=== PATIENT | male | born 1945 | race Caucasian/White ===

== ENCOUNTER 2017-04-13 16:58 | Emergency (ER) | payer OTHER, MEDICAID ==
[~2017-04-13] VITALS: Ht 162.6 cm; Wt 62.5 kg
[~2017-04-13 16:58] MED LIST: ALBU8.5H3 INH; BECL8.7A5 INH; PRED20TA PO
[2017-04-13 17:08] VITALS: Ht 162.6 cm; Wt 62.5 kg
[2017-04-13] MEDS ORDERED: ALBUTEROL 0.083% (NEB) 2.5 MG/3 ML AMP HHN STA (19:03)
[2017-04-13] MEDS ORDERED: DEXAMETHASONE 10 MG/ML 1 ML INJ PO ONE (19:30)
[2017-04-13] MEDS ORDERED: IPRATROPIUM (NEB) 0.5 MG/2.5 ML AMP HHN ONE (19:30)
[2017-04-13 19:41] LABS: BASOPHILS % 0.3 % (0.0-2.0); HEMATOCRIT 46.1 % (42.0-52.0); HEMOGLOBIN 15.9 g/dl (14.0-18.0); LYMPHOCYTES # 1.5 10^3/ul (0.8-2.9); LYMPHOCYTES % 12.1 % (15.0-51.0); MEAN CORPUSCULAR HEMOGLOBIN 29.6 pg (29.0-33.0); MEAN CORPUSCULAR HGB CONC 34.5 g/dl (32.0-37.0); MEAN CORPUSCULAR VOLUME 85.7 fl (82.0-101.0); MONOCYTE # 0.8 10^3/ul (0.3-0.9); MONOCYTES % 6.4 % (0.0-11.0); NEUTROPHIL # 8.7 10^3/ul (1.6-7.5); NEUTROPHILS % 72.9 % (39.0-77.0); PLATELET COUNT 222 10^3/UL (140-415); RED BLOOD COUNT 5.38 10^6/ul (4.70-6.10); RED CELL DISTRIBUTION WIDTH 13.2 % (11.5-14.5); WHITE BLOOD COUNT 11.9 10^3/ul (4.8-10.8)
[2017-04-13 19:54] LABS: ALANINE AMINOTRANSFERASE 38 IU/L (13-69); ALBUMIN 4.3 g/dl (3.3-4.9); ALBUMIN/GLOBULIN RATIO 1.34; ALKALINE PHOSPHATASE 101 IU/L (42-121); ANION GAP 14 (8-16); ASPARTATE AMINO TRANSFERASE 26 IU/L (15-46); BILIRUBIN,INDIRECT 0.3 mg/dl (0-1.1); BILIRUBIN,TOTAL 0.3 mg/dl (0.2-1.3); BLOOD UREA NITROGEN 19 mg/dl (7-20); CALCIUM 8.7 mg/dl (8.4-10.2); CARBON DIOXIDE 23 mmol/L (21-31); CHLORIDE 109 mmol/L (97-110); CREATININE 0.79 mg/dl (0.61-1.24); GLUCOSE 103 mg/dl (70-220); POTASSIUM 4.1 mmol/L (3.5-5.1); SODIUM 142 mmol/L (135-144); TOTAL PROTEIN 7.5 g/dl (6.1-8.1)
[2017-04-13 20:12] LABS: TROPONIN-I < 0.012 ng/ml (0.00-0.12)
--- NOTE | 2017-04-13 21:18 | RADRPT ---
PROCEDURE: XR Chest. CLINICAL INDICATION: Cough. TECHNIQUE: Single frontal view of the chest COMPARISON: 09/26/2015 FINDINGS: The cardiomediastinal silhouette is within normal limits. The lungs are clear. No signs of pleural f luid or pneumothorax are seen. The osseous structures and soft tissues are unremarkable. IMPRESSION: No evidence for active cardiopulmonary disease. RPTAT: UU Physician Omar Date Time Electronically viewed and signed by Bryan Early Physician on 04/13/2017 21:18 RS/
[2017-04-13] MEDS ORDERED: AZIT250T94 PO (21:31)
[2017-04-13] MEDS ORDERED: UDROBDM PO (21:32)
--- NOTE | 2017-04-13 21:39 | ERD ---
ER Documentation Chief Complaint Chief Complaint cough & congestion x4 days, sent by clinic HPI This is a 71-year-old male that presents to the ER with a cough for the last 4 days. Patient has a past medical history of asthma and over the last day has had increased wheezing. Patient states that whenever he coughs he feels chest pain. Chest pain has been going on since his cough started. He denies any exertional chest pain shortness of breath. Patient states that he had a fever at home yesterday. ROS 12 point review of systems was done, all negative except per HPI. Medications Home Meds Active Scripts Guaifenesin-Dextromethorphan* (Robitussin* DM) 100MG/10MG/5ML Syrup, 10 ML PO Q4H Y for COUGH for 3 Days, ML Prov:ARIEL MONROE 04/13/17 Azithromycin* (Zithromax*) 250 Mg Tablet, 250 MG PO .ZPACK DIRECTED, #6 TAB TAKE 500 MG (2 TABS) THE FIRST DAY THEN 250 MG (1 TAB) DAYS 2-5 Prov:ARIEL MONROE 04/13/17 Prednisone* (Prednisone*) 20 Mg Tab, 40 MG PO DAILY for 7 Days, TAB 40 MGX DAYS THEN 20 MGX3 DAYS THEN 10MGX3 DAYS THEN STOP Prov:LORA SHERMAN NP 01/03/16 Albuterol Sulfate* (Proair HFA*) 8.5 Gm Hfa.aer.ad, 2 PUFF INH Q4, #1 INHALER Prov:DEO THOMAS PA-C 09/28/15 Reported Medications Beclomethasone Dip* (Qvar 80*) 7.3 Gm Inha, 2 PUFF INH BID, #1 INHALER 01/02/16 Allergies Allergies: Coded Allergies: Penicillins (Verified Allergy, Unknown, 04/13/17) ampicillin (Verified Allergy, Unknown, 04/13/17) sulfamethoxazole (Verified Allergy, Unknown, 04/13/17) trimethoprim (Verified Allergy, Unknown, 04/13/17) PMhx/Soc History of Surgery: Yes (thyroid cyst removal,abd sx) Anesthesia Reaction: No Hx Neurological Disorder: No Hx Respiratory Disorders: Yes Hx Cardiac Disorders: No Hx Psychiatric Problems: No Hx Miscellaneous Medical Probl: Yes (asthma,thyroid abnormality) Hx Alcohol Use: No Hx Substance Use: No Hx Tobacco Use: No Smoking Status: Never smoker Physical Exam Vitals Vital Signs Date Time Temp Pulse Resp B/P Pulse Ox O2 Delivery O2 Flow Rate FiO2 04/13/17 19:45 84 28 98 21 04/13/17 17:08 99.2 100 18 125/84 97 Physical Exam GENERAL: The patient is well-developed, well-nourished, in no acute distress. NECK: Cervical spine is non tender with no step off. Supple, no nuchal rigidity HEENT: Atraumatic. Pupils equal, round and reactive to light. Extraocular muscles are grossly intact. Conjunctivae pink, no discharge. Bilateral tympanic membranes are clear with no evidence of erythema, effusion or dulling of the light reflex. Tonsilar erythema with no exudates or uvular deviation. Clear rhinorrhea. RESPIRATORY: Expiratory wheezes in all lung [place], coarse breath sounds. No rales rhonchi or crackles. HEART: Regular rate and rhythm. No murmurs, clicks, rubs or gallops. NEUROLOGIC: Alert and oriented. SKIN: There is no rash. The skin is warm and dry. Result Diagram: 04/13/17192404/13/171924 Results 24 hrs Laboratory Tests Test 04/13/17 19:25 White Blood Count 11.910^3/ul Red Blood Count 5.3810^6/ul Hemoglobin 15.9g/dl Hematocrit 46.1% Mean Corpuscular Volume 85.7fl Mean Corpuscular Hemoglobin 29.6pg Mean Corpuscular Hemoglobin Concent 34.5g/dl Red Cell Distribution Width 13.2% Platelet Count 42649^3/UL Mean Platelet Volume 9.0fl Neutrophils % 72.9% Lymphocytes % 12.1% Monocytes % 6.4% Eosinophils % 8.0% Basophils % 0.3% Nucleated Red Blood Cells % 0.0/100WBC Neutrophils # 8.710^3/ul Lymphocytes # 1.510^3/ul Monocytes # 0.810^3/ul Eosinophils # 1.010^3/ul Basophils # 0.010^3/ul Nucleated Red Blood Cells # 0.010^3/ul Sodium Level 142mmol/L Potassium Level 4.1mmol/L Chloride Level 109mmol/L Carbon Dioxide Level 23mmol/L Anion Gap 14 Blood Urea Nitrogen 19mg/dl Creatinine 0.79mg/dl Glucose Level 103mg/dl Calcium Level 8.7mg/dl Total Bilirubin 0.3mg/dl Direct Bilirubin 0.00mg/dl Indirect Bilirubin 0.3mg/dl Aspartate Amino Transf (AST/SGOT) 26IU/L Alanine Aminotransferase (ALT/SGPT) 38IU/L Alkaline Phosphatase 101IU/L Troponin I < 0.012ng/ml Total Protein 7.5g/dl Albumin 4.3g/dl Globulin 3.20g/dl Albumin/Globulin Ratio 1.34 Current Medications Medications (Trade) Dose Ordered Sig/Birdie Route PRN Reason Start Time Stop Time Status Last Admin Dose Admin Albuterol (Proventil 0.083% (Neb)) 5 mg ONCE STAT N 04/13/17 19:03 04/13/17 19:06 DC 04/13/17 19:44 Ipratropium [place] (Atrovent 0.02% (Neb)) 0.5 mg ONCE ONCE HHN 04/13/17 19:30 04/13/17 19:33 DC 04/13/17 19:44 Dexamethasone (Decadron) 8 mg ONCE ONCE PO 04/13/17 19:30 04/13/17 19:33 DC 04/13/17 19:29 [place] [id number] Radiology Main Line: [phone] DIAGNOSTIC IMAGING REPORT Patient: JUAN KAMINSKI : 1945 Age: 71 Sex: M MR #: [id number] DOS: 04/13/17 0000 Ordering MD: ARIEL MONROE PA-C Location: [facility] Room/Bed: PROCEDURE: XR Chest. CLINICAL INDICATION: Cough. TECHNIQUE: Single frontal view of the chest COMPARISON: 09/26/2015 FINDINGS: The cardiomediastinal silhouette is within normal limits. The lungs are clear. No signs of pleural fluid or pneumothorax are seen. The osseous structures and soft tissues are unremarkable. IMPRESSION: No evidence for active cardiopulmonary disease. RPTAT: UU R Stecher, Physician Date Time Electronically viewed and signed by Bryan Early Physician on 04/13/2017 21:18 RS/ CC: ARIEL MONROE [facility] EKG read by Dr. Lan 79bpm no ST elevation no T-wave inversion. Differential diagnosis includes but is not limited to; Viral URI, allergic rhinitis, bronchitis, pertussis,pneumonia. Patient has had a worsening cough over the last 4 days with a fever yesterday and worsening wheezing today. Will be treated as a bacterial bronchitis with wheezing. Patient was given a nebulizing treatment in the ER, and upon reexamination his wheezing had improved and he stated he felt significantly better. Patient for acute cardiac etiology is low, patient only has chest pain with coughing and his EKG was normal. Troponin was negative. Patient's heart score is 2, which is low. Clinical suspicion for pneumonia is low as patient appears well, is not hypoxic or in any respiratory distress. Additionally, patients physical examination improved after treatment. Plan was discussed with patient they understand and agree. Patient needs to follow up with PCP in 1-2 days or return to ER sooner if symptoms worsen. Departure Diagnosis: Primary Impression: Bronchitis Condition: Stable Patient Instructions: Bronchitis With Wheezing (Adult) Additional Instructions: Llame al doctor KIMBERLY y evon rose JOVANNY PARA DENTRO DE 1-2 BONNER.Dgale a la secretaria que nosotros le instruimos hacer esta jovanny.Avise o llame si dodson condicin se empeora antes de la jovanny. Regresa aqui si peor o no mejor. ARIEL MONROE Apr 13, 2017 21:39
[2017-04-13 21:42] VITALS: BP 121/71; PULSE 98; RESP 18
== END 2017-04-13 21:43 | disposition home or self-care (01) ==
LOC: FTE 16:58
DX: J20.9 Acute bronchitis, unspecified (principal); J45.909 Unspecified asthma, uncomplicated; R07.9 Chest pain, unspecified
CPT/HCPCS: 71010; 80053; 84484; 85025; 93005; 94664; 99285; J1100

== ENCOUNTER 2017-06-15 17:37 | Emergency (ER) | payer OTHER ==
[~2017-06-15] VITALS: Ht 165.1 cm; Wt 63.7 kg
[~2017-06-15 17:37] MED LIST changes: +AZIT250T94 PO; +UDROBDM PO
[2017-06-15 17:43] VITALS: Ht 165.1 cm; Wt 63.7 kg
--- NOTE | 2017-06-15 20:12 | ERD ---
ER Documentation Chief Complaint Chief Complaint WOKE UP WITH RT LEG PAIN TODAY , NO TRAUMA HPI 71-year-old male, previously healthy, presents to the emergency department complaining of the sudden onset of right knee pain today after using the stairs. The pain is sharp, localized on the lateral side of the knee, constant, 6/10. No treatment attempted at this time. The patient denies any direct trauma. No fever, chills, no skin changes. ROS A 12-point review of systems was performed and negative other than presented in the history of present illness. SYSTEMIC symptoms: no fever, chills, no night sweats, no weight loss EYE symptoms: No blurred vision, no eye discharge OTOLARYNGEAL symptoms: No hearing loss. No ear pain, no sore throat CARDIOVASCULAR symptoms: No chest pain or discomfort, no palpitations. PULMONARY symptoms: No dyspnea, no cough, no wheezing. GASTROINTESTINAL symptoms: No abdominal pain, no nausea, no vomiting, no diarrhea MUSCULOSKELETAL symptoms: Per HPI NEUROLOGY symptoms: No confusion, no syncope, no numbness or tingling. SKIN: No rashes Medications Home Meds Active Scripts Hydrocodone/Acetaminophen ([place] 5-325 Tablet) 1 Each Tablet, 1 TAB PO Q6H Y for PAIN, #12 TAB Prov:DIANN TANG MD 06/15/17 Ibuprofen* (Ibuprofen*) 600 Mg Tablet, 600 MG PO Q8 Y for PAIN AND/OR INFLAMMATION, #20 TAB Prov:DIANN TANG MD 06/15/17 Guaifenesin-Dextromethorphan* (Robitussin* DM) 100MG/10MG/5ML Syrup, 10 ML PO Q4H Y for COUGH for 3 Days, ML Prov:ARIEL MONROE 04/13/17 Azithromycin* (Zithromax*) 250 Mg Tablet, 250 MG PO .KevPACK DIRECTED, #6 TAB TAKE 500 MG (2 TABS) THE FIRST DAY THEN 250 MG (1 TAB) DAYS 2-5 Prov:ARIEL MONROE 04/13/17 Prednisone* (Prednisone*) 20 Mg Tab, 40 MG PO DAILY for 7 Days, TAB 40 MGX DAYS THEN 20 MGX3 DAYS THEN 10MGX3 DAYS THEN STOP Prov:LORA SHERMAN NP 01/03/16 Albuterol Sulfate* (Proair HFA*) 8.5 Gm Hfa.aer.ad, 2 PUFF INH Q4, #1 INHALER Prov:DEO THOMAS PA-C 09/28/15 Reported Medications Beclomethasone Dip* (Qvar 80*) 7.3 Gm Inha, 2 PUFF INH BID, #1 INHALER 01/02/16 Allergies Allergies: Coded Allergies: Penicillins (Verified Allergy, Unknown, 04/13/17) ampicillin (Verified Allergy, Unknown, 04/13/17) sulfamethoxazole (Verified Allergy, Unknown, 04/13/17) trimethoprim (Verified Allergy, Unknown, 04/13/17) PMhx/Soc History of Surgery: Yes (thyroid cyst removal,abd sx) Anesthesia Reaction: No Hx Neurological Disorder: No Hx Respiratory Disorders: Yes Hx Cardiac Disorders: No Hx Psychiatric Problems: No Hx Miscellaneous Medical Probl: Yes (asthma,thyroid abnormality) Hx Alcohol Use: No Hx Substance Use: No Hx Tobacco Use: No Smoking Status: Never smoker Physical Exam Vitals Vital Signs Date Time Temp Pulse Resp B/P Pulse Ox O2 Delivery O2 Flow Rate FiO2 06/15/17 17:43 97.3 84 18 127/74 97 Physical Exam Patient is in no acute distress, vital signs stable. Alert and fully oriented. EYES: PERRLA, EOMI, Sclera and conjunctiva appear normal. EARS: Canals clear, tympanic membranes WNL THROAT: Normal oropharynx. NECK: Supple, No lymphadenopathy. Full ROM without pain or tenderness. HEART: RRR, no rubs, murmurs, clicks or gallops. LUNGS: Clear to auscultation. ABDOMEN: Soft, non-tender without masses or hepatosplenomegaly. EXTREMITIES: No edema bilaterally. Right knee: Normal inspection, full range of motion, moderate tenderness to palpation of the lateral aspect. Mild crepitus. No meniscus or ligament signs BACK: Full ROM, no deformity, normal back exam NEURO: Cranial nerves grossly intact, no motor or sensory deficit Results [address] [address] Radiology Main Line: [phone] DIAGNOSTIC IMAGING REPORT Patient: JUAN KAMINSKI : 1945 Age: 71 Sex: M MR #: [id number] DOS: 06/15/172009 Ordering MD: DIANN TANG MD Location: [facility] Room/Bed: PROCEDURE: Right knee radiographs. CLINICAL INDICATION: Acute right knee pain. TECHNIQUE: Three views. Frontal, lateral, and oblique. COMPARISON: No prior studies are available for comparison. FINDINGS: There is no fracture or dislocation. The soft tissues are normal. The articular surfaces are intact. There is no lytic or blastic lesion. There is no radiopaque foreign body. IMPRESSION: 1. Unremarkable images of the right knee. RPTAT: QQ .Will Dennison MD, MD Date Time Electronically viewed and signed by .Will Dennison MD, MD on 06/15/2017 21:07 .R/ CC: DIANN TANG MD Procedures/MDM 71-year-old male, previously healthy, presents complaining of sudden onset of right knee pain. Vital signs stable, Physical exam unremarkable, no evidence of meniscus or ligament injury. Differential diagnosis include but not limited to: Sprain, strain, fracture, osteoarthritis, meniscus injury, ligament injury. Low suspicion for septic arthritis. Radiology: Right knee x-rays: Normal Physical examination and clinical presentation consistent most likely with right knee sprain. During the ED course the patient remained stable, no new complaints. Results and clinical impression discussed with patient who agrees with management. The patient is stable to be treated outpatient and will be discharged home with a Rx for ibuprofen and [place], some side effects of prescribed medications (headache, rash, nausea, vomiting, diarrhea, drowsiness, habituation, bleeding, hypertension, interactions with other medications) were reviewed. The patient was instructed to follow up with the primary care provider in the next 48h. If symptoms persist, worsen or new symptoms develop, then patient should return to the ED immediately. Instructions explained and given directly by me to the patient in Irish with acknowledgment and demonstrated understanding. Disclaimer: Inadvertent spelling and grammatical errors are likely due to EHR/ dictation software use and do not reflect on the overall quality of patient care. Also, please note that the electronic time recorded on this note does not necessarily reflect the actual time of the patient encounter. Departure Diagnosis: Primary Impression: Right knee sprain Condition: Stable Additional Instructions: Muchas harinder por [facility] para dodson servicio. Esperamos que en dodson visita a la quita de emergencia dodson problema medico haya sido solucionado y que se sienta mucho mejor. Para estar seguros que dodson mejoria sigue en proceso, le pedimos el favor de hacer rose beth de seguimiento medico con dodson doctor primario en los proximos 2-4 burris. Lleve con usted estos documentos y las medicinas recetadas. Si faiza sintomas empeoran y no puede cora a dodson doctor, por favor regrese a quita de emergencia. En anel que usted no tenga un mdico de atencin primaria: Llame al mdico o clnica comunitaria de referencia que aparece abajo nancie las horas de consultorio para hacer rose beth para que le vean. CLINICAS: [facility] [phone] [facility] [phone] [facility] [phone] [facility] [phone] [place] [id number] [phone] [facility]. [phone] DIANN FLAHERTY MD Jun 15, 2017 20:12
--- NOTE | 2017-06-15 21:07 | RADRPT ---
PROCEDURE: Right knee radiographs. CLINICAL INDICATION: Acute right knee pain. TECHNIQUE: Three views. Frontal, lateral, and oblique. COMPARISON: No prior studies are available for comparison. FINDINGS: There is no fracture or dislocation. The soft tissues are normal. The articular surfaces are intact. There is no lytic or blastic lesion. There is no radiopaque foreign body. IMPRESSION: 1. Unremarkable images of the right knee. RPTAT: QQ .Will Dennison MD, MD Date Time Electronically viewed and signed by .Will Dennison MD, on 06/15/2017 21:07 .R/
[2017-06-15] MEDS ORDERED: IBUP-1542 PO (21:43)
[2017-06-15] MEDS ORDERED: HYDR-906 PO (21:43)
== END 2017-06-15 22:24 | disposition left against medical advice (07) ==
LOC: FTE 17:37
DX: S83.91XA Sprain of unspecified site of right knee, initial encounter (principal); J45.909 Unspecified asthma, uncomplicated; X58.XXXA Exposure to other specified factors, initial encounter; Y92.9 Unspecified place or not applicable
CPT/HCPCS: 73562

== ENCOUNTER 2017-08-05 22:40 | Emergency (ER) | END 2017-08-06 02:04 | disposition home or self-care (01) ==

== ENCOUNTER 2018-07-07 19:29 | Emergency (ER) | payer OTHER ==
[~2018-07-07] VITALS: Ht 162.6 cm; Wt 66.0 kg
[~2018-07-07 19:29] MED LIST changes: -ALBU8.5H3 INH; +ALBU8.5H8 INH; +AZIT250T PO; -AZIT250T94 PO; +GUAI5SYR2 PO; +HYDR-4011 PO; +IBUP-1542 PO; -UDROBDM PO
[2018-07-07 19:36] VITALS: Ht 162.6 cm; Wt 66.0 kg
[2018-07-07] MEDS ORDERED: SOD CHLORIDE 0.9% 500 ML IV STA (23:58)
[2018-07-07] MEDS ORDERED: ONDANSETRON 4 MG INJ IV STA (23:58)
[2018-07-07] MEDS ORDERED: morphine 4 MG/ML VIAL IV STA (23:58)
[2018-07-08 01:58] VITALS: RESP 22
[2018-07-08] MEDS ORDERED: NAPR-985 PO (02:15)
--- NOTE | 2018-07-08 02:16 | ERD ---
ER Documentation Chief Complaint Chief Complaint left abdominal pain x 1 day HPI This 72-year-old complains of left lower quadrant abdominal pain for the past day. Pain mild to moderate intensity. Mild nausea but no vomiting. Pain is colicky in nature with no exacerbating relieving factors or radiations. Denies dysuria. Denies any change in bowel or bladder habits. Denies any change in prandial habits. ROS All systems reviewed and are negative except as per history of present illness. Medications Home Meds Active Scripts Naproxen* (Naprosyn*) 500 Mg Tablet, 500 MG PO BID PRN for PAIN AND/OR INFLAMMATION, #30 TAB Prov:MICHELLE STOLL 07/08/18 Prednisone* (Prednisone*) 20 Mg Tab, 20 MG PO BID, #6 TAB Prov:СВЕТЛАНА SOLOMON MD 08/06/17 Albuterol Sulfate* (Proair HFA*) 8.5 Gm Hfa.aer.ad, 2 PUFF INH Q6H PRN for WHEEZING AND SOB, #1 INHALER Prov:СВЕТЛАНА SOLOMON MD 08/06/17 Hydrocodone/Acetaminophen ([place] 5-325 Tablet) 1 Each Tablet, 1 TAB PO Q6H PRN for PAIN, #12 TAB Prov:DIANN TANG MD 06/15/17 Ibuprofen* (Ibuprofen*) 600 Mg Tablet, 600 MG PO Q8 PRN for PAIN AND/OR INFLAMMATION, #20 TAB Prov:DIANN TANG MD 06/15/17 Guaifenesin-Dextromethorphan* (Robitussin* DM) 100MG/10MG/5ML Syrup, 10 ML PO Q4H PRN for COUGH for 3 Days, ML Prov:ARIEL MONROE 04/13/17 Azithromycin* (Zithromax*) 250 Mg Tablet, 250 MG PO .ZPACK DIRECTED, #6 TAB TAKE 500 MG (2 TABS) THE FIRST DAY THEN 250 MG (1 TAB) DAYS 2-5 Prov:ARIEL MONROE 04/13/17 Prednisone* (Prednisone*) 20 Mg Tab, 40 MG PO DAILY for 7 Days, TAB 40 MGX DAYS THEN 20 MGX3 DAYS THEN 10MGX3 DAYS THEN STOP Prov:LORA SHERMAN NP 01/03/16 Albuterol Sulfate* (Proair HFA*) 8.5 Gm Hfa.aer.ad, 2 PUFF INH Q4, #1 INHALER Prov:DEO THOMAS PA-C 09/28/15 Reported Medications Beclomethasone Dip* (Qvar 80*) 7.3 Gm Inha, 2 PUFF INH BID, #1 INHALER 01/02/16 Allergies Allergies: Coded Allergies: Penicillins (Verified Allergy, Unknown, 04/13/17) ampicillin (Verified Allergy, Unknown, 04/13/17) sulfamethoxazole (Verified Allergy, Unknown, 04/13/17) trimethoprim (Verified Allergy, Unknown, 04/13/17) PMhx/Soc History of Surgery: Yes (thyroid, appendectomy) Anesthesia Reaction: No Hx Neurological Disorder: No Hx Respiratory Disorders: Yes (bronchitis, asthma) Hx Cardiac Disorders: No Hx Psychiatric Problems: No Hx Miscellaneous Medical Probl: Yes (thyroid abnormality) Hx Alcohol Use: No Hx Substance Use: No Hx Tobacco Use: No Smoking Status: Never smoker Physical Exam Vitals Vital Signs Date Temp Pulse Resp B/P (MAP) Pulse Ox O2 O2 Flow FiO2 Time Delivery Rate 07/08/18 75 22 121/71 98 Room Air 01:58 (88) 07/07/18 97.7 115 18 156/78 97 19:36 (104) Physical Exam Const: No acute distress Head: Atraumatic Eyes: Normal Conjunctiva ENT: Normal External Ears, Nose and Mouth. Neck: Full range of motion. No meningismus. Resp: Clear to auscultation bilaterally Cardio: Regular rate and rhythm, no murmurs Abd: Soft, non tender, non distended. Normal bowel sounds Skin: No petechiae or rashes Back: No midline or flank tenderness Ext: No cyanosis, or edema Neur: Awake and alert Psych: Normal Mood and Affect Result Diagram: 07/08/18 0012 07/08/18 0012 Results 24 hrs Laboratory Tests Test 07/08/18 00:12 White Blood Count 8.9 10^3/ul Red Blood Count 5.41 10^6/ul Hemoglobin 15.5 g/dl Hematocrit 46.5 % Mean Corpuscular Volume 86.0 fl Mean Corpuscular Hemoglobin 28.7 pg Mean Corpuscular Hemoglobin Concent 33.3 g/dl Red Cell Distribution Width 13.1 % Platelet Count 271 10^3/UL Mean Platelet Volume 9.0 fl Immature Granulocytes % 0.300 % Neutrophils % 60.2 % Lymphocytes % 28.1 % Monocytes % 8.0 % Eosinophils % 3.1 % Basophils % 0.3 % Nucleated Red Blood Cells % 0.0 /100WBC Immature Granulocytes # 0.030 10^3/ul Neutrophils # 5.3 10^3/ul Lymphocytes # 2.5 10^3/ul Monocytes # 0.7 10^3/ul Eosinophils # 0.3 10^3/ul Basophils # 0.0 10^3/ul Nucleated Red Blood Cells # 0.0 10^3/ul Urine Color YELLOW Urine Clarity CLEAR Urine pH 5.0 Urine Specific Mayflower 1.016 Urine Ketones NEGATIVE mg/dL Urine Nitrite NEGATIVE mg/dL Urine Bilirubin NEGATIVE mg/dL Urine Urobilinogen NEGATIVE mg/dL Urine Leukocyte Esterase NEGATIVE [place]/ul Urine Hemoglobin NEGATIVE mg/dL Urine Glucose NEGATIVE mg/dL Urine Total Protein NEGATIVE mg/dl Sodium Level 141 mmol/L Potassium Level 4.2 mmol/L Chloride Level 103 mmol/L Carbon Dioxide Level 28 mmol/L Anion Gap 10 Blood Urea Nitrogen 14 mg/dl Creatinine 0.73 mg/dl Est Glomerular Filtrat Rate mL/min mL/min Glucose Level 106 mg/dl Calcium Level 8.8 mg/dl Total Bilirubin 0.3 mg/dl Direct Bilirubin 0.00 mg/dl Indirect Bilirubin 0.3 mg/dl Aspartate Amino Transf (AST/SGOT) 32 IU/L Alanine Aminotransferase (ALT/SGPT) 33 IU/L Alkaline Phosphatase 82 IU/L Total Protein 7.9 g/dl Albumin 4.7 g/dl Globulin 3.20 g/dl Albumin/Globulin Ratio 1.46 Lipase 148 U/L Current Medications Medications Dose Sig/Birdie Start Time Status Last (Trade) Ordered Route PRN Stop Time Admin Dose Reason Admin Sodium 500 ml @ Q1H STAT 07/07/18 DC 07/08/18 Chloride 500 mls/hr IV 23:58 00:26 07/08/18 00:57 Morphine 4 mg ONCE STAT 07/07/18 DC 07/08/18 Sulfate IV 23:58 00:26 (morphine) 07/07/18 23:59 Ondansetron 4 mg ONCE STAT 07/07/18 DC 07/08/18 HCl (Zofran IV 23:58 00:26 Inj) 07/07/18 23:59 Procedures/MDM Medical decision making: This is a 72-year-old male with undifferentiated abdominal pain. Pain is resolved in the emergency department. No evidence of surgical abdomen on serial abdominal examinations. Patient tolerating p.o. Stable for trial of outpatient management. Patient's gastrointestinal symptoms have stabilized while in the department. No evidence of severe dehydration, sepsis, or surgical abdomen. Extensive discussion with family and patient that occult disease cannot be ruled out. 8 hour recheck for repeat abdominal exam is planned. Departure Diagnosis: Primary Impression: Abdominal pain Abdominal location: unspecified location Qualified Codes: R10.9 - Unspecified abdominal pain Condition: Stable Patient Instructions: Abdominal Pain MICHELLE STOLL Jul 08, 2018 02:16
[2018-07-08 02:36] VITALS: BP 116/77; PULSE 81
== END 2018-07-08 02:40 | disposition home or self-care (01) ==
LOC: E/R 19:29
DX: R10.32 Left lower quadrant pain (principal); J45.909 Unspecified asthma, uncomplicated
CPT/HCPCS: 36415; 71045; 74176; 80053; 81003; 83690; 85025; 87086; 96374; 96375; 99285; J2270; J2405; J7040

== ENCOUNTER 2018-08-19 10:23 | Day surgery (SDC) | payer OTHER ==
[~2018-08-19] VITALS: Ht 160 cm; Wt 64.4 kg
[~2018-08-19 10:23] MED LIST changes: +NAPR-985 PO
[2018-08-19 12:10] VITALS: Ht 160 cm; Wt 64.4 kg
[2018-08-19] MEDS ORDERED: ADVAIR (12:10)
[2018-08-19] MEDS ORDERED: OMEPRAZOLE (12:10)
[2018-08-19] MEDS ORDERED: ALBUTEROL (12:10)
[2018-08-19] MEDS ORDERED: MELOXICAM (12:10)
[2018-08-19] MEDS ORDERED: FOSAMAX (12:10)
[2018-08-19] MEDS ORDERED: SINGULAIR (12:10)
[2018-08-19 12:34] VITALS: BP 141/76; PULSE 66; RESP 18
--- NOTE | 2018-08-19 13:21 | PREAC ---
Date/Time of Note Date/Time of Note DATE: 08/19/18 TIME: 13: Anesthesia Eval and Record Evaluation Time Pre-Procedure Interview DATE: 08/19/18 TIME: 13:19 Age 72 Sex male NPO: 8 hrs Preoperative diagnosis abd pain Planned procedure egd, colonoscopy Past Medical History Past Medical History: Includes Pulm: Asthma Musculoskeletal: Osteoarthritis Renal: BPH Surgery & Anesthesia Issues No known issue Meds Anticoagulation: No Beta Matt within 24 hr: No Reason Beta Matt not given: Pt. not on B-Matt Active Scripts Naproxen* (Naprosyn*) 500 Mg Tablet, 500 MG PO BID PRN for PAIN AND/OR INFLAMMATION, #30 TAB Prov:MICHELLE STOLL 07/08/18 Albuterol Sulfate* (Proair HFA*) 8.5 Gm Hfa.aer.ad, 2 PUFF INH Q6H PRN for WHEEZING AND SOB, #1 INHALER Prov:СВЕТЛАНА SOLOMON MD 08/06/17 Hydrocodone/Acetaminophen ([place] 5-325 Tablet) 1 Each Tablet, 1 TAB PO Q6H PRN for PAIN, #12 TAB Prov:DIANN TANG MD 06/15/17 Ibuprofen* (Ibuprofen*) 600 Mg Tablet, 600 MG PO Q8 PRN for PAIN AND/OR INFLAMMATION, #20 TAB Prov:DIANN TANG MD 06/15/17 Albuterol Sulfate* (Proair HFA*) 8.5 Gm Hfa.aer.ad, 2 PUFF INH Q4, #1 INHALER Prov:DEO THOMAS PA-C 09/28/15 Reported Medications [Omeprazole] No Conflict Check 08/19/18 [Fosamax] No Conflict Check 08/19/18 [Meloxicam] No Conflict Check 08/19/18 [Singulair] No Conflict Check 08/19/18 [Albuterol] No Conflict Check 08/19/18 [Advair] No Conflict Check 08/19/18 Discontinued Reported Medications Beclomethasone Dip* (Qvar 80*) 7.3 Gm Inha, 2 PUFF INH BID, #1 INHALER 01/02/16 Discontinued Scripts Prednisone* (Prednisone*) 20 Mg Tab, 20 MG PO BID, #6 TAB Prov:СВЕТЛАНА SOLOMON MD 08/06/17 Guaifenesin-Dextromethorphan* (Robitussin* DM) 100MG/10MG/5ML Syrup, 10 ML PO Q4H PRN for COUGH for 3 Days, ML Prov:ARIEL MONROE 04/13/17 Azithromycin* (Zithromax*) 250 Mg Tablet, 250 MG PO .ZPACK DIRECTED, #6 TAB TAKE 500 MG (2 TABS) THE FIRST DAY THEN 250 MG (1 TAB) DAYS 2-5 Prov:ARIEL MONROE 04/13/17 Prednisone* (Prednisone*) 20 Mg Tab, 40 MG PO DAILY for 7 Days, TAB 40 MGX DAYS THEN 20 MGX3 DAYS THEN 10MGX3 DAYS THEN STOP Prov:LORA SHERMAN NP 01/03/16 Meds reviewed: Yes Allergies Coded Allergies: Penicillins (Verified Allergy, Unknown, 04/13/17) ampicillin (Verified Allergy, Unknown, 04/13/17) sulfamethoxazole (Verified Allergy, Unknown, 04/13/17) trimethoprim (Verified Allergy, Unknown, 04/13/17) Allergies Reviewed: Yes Labs/Studies Labs Reviewed: Reviewed by anesthesiologist test: N/A Pre-procedure Exam Last vitals Vital Signs Date Temp Pulse Resp B/P (MAP) Pulse Ox O2 O2 Flow FiO2 Time Delivery Rate 08/19/18 97.7 66 18 141/76 Room Air 12:34 (97) Airway: Adequate mouth opening, Adequate thyromental dist Mallampati: Mallampati III Teeth: Normal Lung: Normal Heart: Normal ASA Physical Status ASA physical status: 3 Emergency: None Pre-operative Attestations Prior to commencing anesthesia and surgery, the patient was re-evaluated, there was verification of: *The patient's identity *The results of appropriate recent lab work and preoperative vital signs *The above evaluation not changing prior to induction *Anesthetic plan, risk benefits, alternative and complications discussed with patient/family; questions answered; patient/family understands, accepts and wishes to proceed. MARIANA BELL DO Aug 19, 2018 13:21
[2018-08-19] MEDS ORDERED: PROPOFOL 40 ML ONE (13:22)
[2018-08-19] MEDS ORDERED: LIDOCAINE 2% (SDV) 5 ML INJ ONE (13:22)
--- NOTE | 2018-08-19 14:09 | PAC ---
Date/Time of Note Date/Time of Note DATE: 08/19/18 TIME: 14:09 Post-Anesthesia Notes Post-Anesthesia Note Last documented vital signs BP 124/67 HR 75 RR 16 Spo2 99% Temp 97 Vital Signs Date Temp Pulse Resp B/P (MAP) Pulse Ox O2 O2 Flow FiO2 Time Delivery Rate 08/19/18 97.7 66 18 141/76 Room Air 12:34 (97) Activity: WNL Respiratory function: WNL Cardiovascular function: WNL Mental status: Baseline Pain reasonably controlled: Yes Hydration appropriate: Yes Nausea/Vomiting absent: Yes NINA THORNE Aug 19, 2018 14:09
[2018-08-19 14:25] VITALS: BP 124/78; RESP 20
[2018-08-19] MEDS ORDERED: ONDANSETRON 4 MG INJ IV PRN (14:30)
== END 2018-08-19 15:33 | disposition home or self-care (01) ==
LOC: GIL 10:23
PROVIDERS: ATTEND Internal Medicine Gastroenterology
DX: Z12.11 Encounter for screening for malignant neoplasm of colon (principal); K29.50 Unspecified chronic gastritis without bleeding; K64.8 Other hemorrhoids
CPT/HCPCS: 88305; 88312